=== PATIENT | female | born 1985 | race African-American/Black ===

== ENCOUNTER 2018-05-29 18:05 | Emergency (ER) | payer OTHER, SELFPAY ==
[2018-05-29] MEDS ORDERED: Ketorolac Tromethamine 30 MG/ML VIAL ONE (18:49)
== END 2018-05-29 19:05 | disposition home or self-care (01) ==
LOC: ERS 18:05
DX: K08.89 Other specified disorders of teeth and supporting structures (principal)
CPT/HCPCS: 96372; J1885

== ENCOUNTER 2021-11-27 07:17 | Emergency (ER) | payer OTHER, SELFPAY ==
[2021-11-27 08:09] LABS: #Eosinphils 0.1 thou/uL (0.0-0.7); #Lymphocytes 1.4 thou/uL (1.20-3.40); #Monocytes 0.5 thou/uL (0.11-0.59); #Neutrophils 3.1 thou/uL (1.40-6.50); %Basophils 0.7 % (0.0-1.0); %Lymphocytes 27.2 % (21.0-51.0); %Monocytes 9.4 % (0.0-10.0); %Neutrophils 61.7 % (42.0-75.0); Hemoglobin 12.6 g/dL (12.0-16.0); Mean Corpuscular HGB CONC 32.6 g/dL (32.0-36.0); Mean Corpuscular Hemoglobin 28.9 pg (27.0-31.0); Mean Corpuscular Volume 88.8 fL (78.0-98.0); Mean Platelet Volume 6.7 fL (7.4-10.4); Platelet Count 304 thou/uL (130-400); RBC Distribution Width 11.6 % (11.5-14.5); Red Blood Cell (RBC) Count 4.35 mill/uL (4.20-5.40); White Blood Cell (WBC) Count 5.1 thou/uL (4.8-10.8)
[2021-11-27 08:25] LABS: BHCG - Serum Negative (NEGATIVE); Pregs Control Background? CLEAR/WHITE (CLR/WHITE); Pregs Control Bar Appear? YES (CONTROL BAR)
[2021-11-27 08:27] LABS: ALT (SGPT) 13 U/L (8-55); AST (SGOT) 14 U/L (5-34); Alkaline Phosphatase 59 U/L (40-110); Anion Gap 14 mmol/L (10-20); BUN (Urea Nitrogen) 10 mg/dL (7.0-18.7); Bilirubin, Total 0.6 mg/dL (0.2-1.2); Calc. Creatinine Clearance 0 mL/min (70-130); Calcium 9.3 mg/dL (7.8-10.44); Carbon Dioxide 23 mmol/L (22-29); Chloride 104 mmol/L (98-107); Estimated GFR 91; Globulin 3.3 g/dL (2.4-3.5); Glucose 92 mg/dL (70-105); Potassium 3.6 mmol/L (3.5-5.1); Protein, Total 7.3 g/dL (6.0-8.3); Sodium 137 mmol/L (136-145)
== END 2021-11-27 09:06 | disposition home or self-care (01) ==
LOC: ERS 07:17
DX: R07.89 Other chest pain (principal); R09.81 Nasal congestion
CPT/HCPCS: 36415; 80053; 84484; 84703; 85025; 93005

== ENCOUNTER 2022-03-04 14:28 | Emergency (ER) | payer OTHER | END 2022-03-04 15:38 | disposition home or self-care (01) | LOC: ERS 14:28 | DX: S40.012A Contusion of left shoulder, initial encounter (principal); J11.1 Influenza due to unidentified influenza virus with other respiratory manifestations; W19.XXXA Unspecified fall, initial encounter | CPT/HCPCS: 87804 ==